=== PATIENT | male | born 1930 | race Two or more races ===

== ENCOUNTER 2017-09-11 04:01 | Emergency (ER) | payer MEDICARE, MEDICAID ==
[~2017-09-11] VITALS: Ht 183.5 cm; Wt 88.5 kg
[~2017-09-11 04:01] MED LIST: BACLOFEN10 MG ORAL; ECOTRIN81 MG ORAL; FAMOTIDINE40 MG ORAL; LASIX40 MG ORAL; LIPITOR10 MG ORAL; LISINOPRIL5 MG ORAL; NORVASC5 MG ORAL; RANITIDINE HCL150 M1 ORAL; TRAZODONE HCL150 MG ORAL; VITAMIN D-32000 UNI1 PO
[2017-09-11 04:12] VITALS: BP 138/66
--- NOTE | 2017-09-11 04:15 | Emergency Room Report ---
History of Present Illness General Chief Complaint: Nosebleed Source: Patient Present Illness HPI Is an 87-year-old male with history hypertension. He had a recent right knee replacement. He presents with chief complaint of nosebleed. This been on and off problem for a while now. He been to the ER 4 times intensity been to a specialist already. He presents with chief complaint of nosebleed from the left side. Onset about an hour to an hour half ago. Unable to get it to stop. No trauma. He is on aspirin. No pain. Allergies: Coded Allergies: ENOXAPARIN (Unverified Allergy, Severe, PT LOSES CONCIOUSNESS, 05/22/14) SULFA (SULFONAMIDE ANTIBIOTICS) (Unverified Allergy, Unknown, 09/11/17) Uncoded Allergies: SULFA (Allergy, Unknown, 05/22/14) Patient History Past Medical History: see triage record, old chart reviewed, HTN Past Surgical History: other Pertinent Family History: none Social History: Denies: smoking Immunizations: other Reviewed Nursing Documentation: PMH: Agreed; PSxH: Agreed Nursing Documentation-PMH Past Medical History: No History, Except For Hx Hypertension: Yes Hx Cancer: Yes Hx Gastrointestinal Problems: No Hx Neurological Problems: Yes Hx Cerebrovascular Accident: Yes Review of Systems Eye: Denies: eye pain, blurred vision ENT: Denies: ear pain, nose congestion, throat swelling Respiratory: Denies: cough, shortness of breath Cardiovascular: Denies: chest pain, palpitations Gastrointestinal: Denies: abdominal pain, diarrhea, nausea, vomiting Musculoskeletal: Denies: back pain, joint pain Skin: Denies: rash Neurological: Denies: headache, numbness Endocrine: Denies: increased thirst, increased urine Hematologic/Lymphatic: Denies: easy bruising All Other Systems: negative except mentioned in HPI Physical Exam Vital Signs Date Time Temp Pulse Resp B/P (MAP) Pulse Ox O2 Delivery O2 Flow Rate FiO2 09/11/17 03:51 98.7 87 14 141/60 99 98.8 vitals normal Sp02 EP Interpretation: reviewed, normal General Appearance: well appearing, no apparent distress, alert Head: normocephalic, atraumatic Eyes: bilateral eye PERRL, bilateral eye EOMI ENT: hearing grossly normal, normal pharynx, other - oozing of blood from the naris. there is a large clot in his naris. blood trickling to back of throat. Neck: full range of motion, supple, no meningismus Respiratory: chest non-tender, lungs clear, normal breath sounds Cardiovascular #1: regular rate, rhythm, no murmur Gastrointestinal: normal bowel sounds, non tender, no mass, no organomegaly, no bruit, non-distended Musculoskeletal: back normal, gait/station normal, normal range of motion Psychiatric: mood/affect normal Skin: warm/dry Procedures Additional Procedure Procedure Narrative Procedure: Epistaxis control Indication: Epistaxis Description: I place a 4.5 cm Rhino Rocket to the left nares. Inflated. He was able to caught on a large clot. Patient was watched for 30 minutes. No active bleeding. Patient tolerated procedure without a problem. No complication. Medical Decision Making Diagnostic Impression: Primary Impression: Acute anterior epistaxis ER Course This patient presents with epistaxis. No evidence of posterior bleeding. Eating controlled now. We'll discharge home. I discussed the case with Albino to arrange for follow-up with ENT. Last Vital Signs Date Time Temp Pulse Resp B/P (MAP) Pulse Ox O2 Delivery O2 Flow Rate FiO2 09/11/17 03:51 98.7 87 14 141/60 99 98.8 Status: improved Disposition: HOME, SELF-CARE Condition: Stable Patient Instructions: Nosebleed, [id number] Additional Instructions: Follow-up with your doctor within a week. You will need a referral to see no specialist. Return if worse. MICHOACANO HALE M.D. September 11, 2017 04:15
[2017-09-11 04:50] VITALS: BP 138/66
== END 2017-09-11 04:50 | disposition home or self-care (01) ==
LOC: EDBD 04:01 → EMR 04:11
DX: R04.0 Epistaxis (principal); I10 Essential (primary) hypertension; Z96.651 Presence of right artificial knee joint; Z88.2 Allergy status to sulfonamides; Z88.8 Allergy status to other drugs, medicaments and biological substances; Z86.73 Personal history of transient ischemic attack (TIA), and cerebral infarction without residual deficits
CPT/HCPCS: 30901; 99283